=== PATIENT | male | born 1960 | race Caucasian/White ===

== ENCOUNTER 2019-03-26 20:06 | Emergency (ER) | payer MEDICARE, OTHER ==
[2019-03-26] MEDS ORDERED: MORPHINE SULFATE 10 MG/ML IV ONE (20:28)
[2019-03-26] MEDS ORDERED: Zofran 4 MG/2 ML VIAL IV ONE (20:28)
[2019-03-26] MEDS ORDERED: Sodium Chloride 0.9% 1000 ML 1,000 ML IV SCH (20:30)
[2019-03-26] MEDS ORDERED: MORPHINE SULFATE 10 MG/ML ONE (20:34)
[2019-03-26] MEDS ORDERED: Sodium Chloride 0.9% 1000 ML 1,000 ML ONE (20:34)
[2019-03-26] MEDS ORDERED: Zofran 4 MG/2 ML VIAL ONE (20:34)
--- NOTE | 2019-03-26 20:52 | ERPHSYRPT ---
- History of Present Illness Time Seen by Provider: 03/26/19 20:23 Historian: patient Exam Limitations: other Patient Subjective Stated Complaint: Abdominal pain Triage Nursing Assessment: Patient brought into ED per EMS at this time. Patient transferred to be with assist of 2. Patient A+O X 3. Patient's skin pink , warm and dry. Patient complains of sharp, stabbing pain in abdomen left side of umbilicus 07/11at started a little before 1999. Patient states his back is also hurting 07/11. Patient's abdomen soft and round with positive bowel sounds X 4. Patient also complains of N/V. Physician History: PATIENT WITH A HISTORY OF HYPERTENSION, CVA WITH LEFT HEMIPARESIS, CORONARY ARTERY DISEASE, COMPLAINS OF ACUTE ONSET OF LEFT SIDED ABDOMINAL AND PERIUMBILICAL PAIN 30 MINUTES PRIOR TO ARRIVAL, DESCRIBES PAIN SHARP IN CHARACTER, RADIATES TO BACK AND ASSOCIATED WITH NAUSEA. DENIES URINARY SYMPTOMS , FEVER, EMESIS OR DIARRHEA. Timing/Duration: today Activities at Onset: none Quality: sharpness, stabbing Abdominal Pain Onset Location: LLQ, periumbilical Pain Radiation: other (BACK) Severity of Pain-Max: moderate Severity of Pain-Current: moderate Modifying Factors: Improves With: nothing Associated Symptoms: nausea Previous symptoms: no prior history Allergies/Adverse Reactions: aspirin Allergy (Verified 03/26/19 20:10) Penicillins Allergy (Verified 03/26/19 20:10) Hx Influenza Vaccination/Date Given: No Immunizations Up to Date: Yes - Review of Systems Constitutional: No Fever, No Chills Eyes: No Symptoms Ears, Nose, & Throat: No Symptoms Respiratory: No Symptoms, No Cough, No Dyspnea Cardiac: No Symptoms, No Chest Pain, No Edema, No Syncope Abdominal/Gastrointestinal: Abdominal Pain, Nausea, No Vomiting, No Diarrhea Genitourinary Symptoms: No Symptoms, No Dysuria Musculoskeletal: No Symptoms, No Back Pain, No Neck Pain Skin: No Rash Neurological: No Dizziness, No Focal Weakness, No Sensory Changes Psychological: No Symptoms Endocrine: No Symptoms All Other Systems: Reviewed and Negative - Past Medical History Neurological History: Stroke ENT History: No Pertinent History Cardiac History: Other Respiratory History: No Pertinent History Endocrine Medical History: No Pertinent History Musculoskeletal History: No Pertinent History GI Medical History: No Pertinent History History: No Pertinent History Psycho-Social History: No Pertinent History Male Reproductive Disorders: No Pertinent History - Past Surgical History Past Surgical History: No Neuro Surgical History: No Pertinent History Cardiac: No Pertinent History Respiratory: No Pertinent History Gastrointestinal: No Pertinent History Genitourinary: No Pertinent History Musculoskeletal: Orthopedic Surgery Male Surgical History: No Pertinent History Other Surgical History: collar bone surgery. Stents to be placed next Saturday. - Social History Smoking Status: Never smoker Exposure to second hand smoke: No Drug Use: none Patient Lives Alone: Yes - Nursing Vital Signs Nursing Vital Signs: Initial Vital Signs Temperature 98.2 F 03/26/19 20:11 Pulse Rate 99 H 03/26/19 20:11 Respiratory Rate 18 03/26/19 20:11 Blood Pressure 130/88 03/26/19 20:11 O2 Sat by Pulse Oximetry 96 03/26/19 20:11 Pain Scale Pain Intensity 0 - Physical Exam General Appearance: no apparent distress, alert Eye Exam: PERRL/EOMI, eyes nml inspection Ears, Nose, Throat Exam: normal ENT inspection, pharynx normal, moist mucous membranes Neck Exam: normal inspection, non-tender, supple, full range of motion Respiratory Exam: normal breath sounds, lungs clear, No respiratory distress Cardiovascular Exam: regular rate/rhythm, normal heart sounds Gastrointestinal/Abdomen Exam: soft, normal bowel sounds, tenderness (LEFT LOWER QUAD AND SUPRAPUBIC TENDERNESS), No mass Back Exam: normal inspection, normal range of motion, No CVA tenderness, No vertebral tenderness Extremity Exam: normal inspection, normal range of motion, pelvis stable Neurologic Exam: alert, oriented x 3, cooperative, normal mood/affect, nml cerebellar function, sensation nml, No motor deficits Skin Exam: normal color, warm, dry SpO2: 96 - CT Exams Abdomen/Pelvis CT Interpretation: Discussed w/radiologist (NORMAL APPENDIX, MINIMAL GALLBLADDER SLUDGE/GRAVEL, LEFT RENAL CORTICAL SCARRING ) Ordered Tests: Active Orders 24 hr Category Date Time Status Clean Catch Urine Specimen STAT Care 03/26/19 20:28 Active IV Insertion STAT Care 03/26/19 20:28 Active ABDOMEN AND PELVIS W/0 CONTRAS [CT] Stat Exams 03/26/19 20:29 Taken AMYLASE Stat Lab 03/26/19 20:35 Completed BLOOD CULTURE Stat Lab 03/26/19 20:50 Received CBC W DIFF Stat Lab 03/26/19 20:35 Completed CMP Stat Lab 03/26/19 20:35 Completed LIPASE Stat Lab 03/26/19 20:35 Completed UA W/RFX UR CULTURE Stat Lab 03/26/19 20:29 Uncollected Medication Summary Generic Name Dose Route Start Last Admin Trade Name Tera PRN Reason Stop Dose Admin Sodium Chloride 1,000 mls @ 100 mls/hr 03/26/19 20:30 03/26/19 20:45 Sodium Chloride 0.9% 1000 Ml IV 04/25/19 20:29 100 mls/hr .Q10H SONIA Administration Discontinued Medications Generic Name Dose Route Start Last Admin Trade Name Tera PRN Reason Stop Dose Admin Morphine Sulfate 6 mg 03/26/19 20:28 03/26/19 20:39 Morphine Sulfate 10 Mg/Ml IV 03/26/19 20:29 6 mg STAT ONE Administration Morphine Sulfate Confirm 03/26/19 20:34 Morphine Sulfate 10 Mg/Ml Administered 03/26/19 20:35 Dose 10 mg .ROUTE .STK-MED ONE Ondansetron HCl 4 mg 03/26/19 20:28 03/26/19 20:39 Zofran 4 Mg/2 Ml Vial IV 03/26/19 20:29 4 mg STAT ONE Administration Ondansetron HCl Confirm 03/26/19 20:34 Zofran 4 Mg/2 Ml Vial Administered 03/26/19 20:35 Dose 4 mg .ROUTE .STK-MED ONE Lab/Rad Data: Laboratory Result Diagrams 03/26/19 20:35 03/26/19 20:35 Laboratory Results 03/26/19 03/26/19 Range/Units 20:35 20:35 WBC 9.1 (4.0-10.5) K/mm3 RBC 5.12 (4.1-5.6) M/mm3 Hgb 15.8 (12.5-18.0) gm/dl Hct 47.3 (42-50) % MCV 92.4 (78-100) fl MCH 30.9 (26-32) pg MCHC 33.4 (32-36) g/dl RDW 13.3 (11.5-14.0) % Plt Count 210 (150-450) K/mm3 MPV 10.6 H (6-9.5) fl Gran % 73.2 H (36.0-66.0) % Eos # (Auto) 0.13 (0-0.5) Absolute Lymphs (auto) 1.48 (1.0-4.6) Absolute Monos (auto) 0.82 (0.0-1.3) Lymphocytes % 16.2 L (24.0-44.0) % Monocytes % 9.0 (0.0-12.0) % Eosinophils % 1.4 (0.00-5.0) % Basophils % 0.2 (0.0-0.4) % Absolute Granulocytes 6.69 (1.4-6.9) Basophils # 0.02 (0-0.4) Sodium 142 (137-145) mmol/L Potassium 3.8 (3.5-5.1) mmol/L Chloride 108 H (98-107) mmol/L Carbon Dioxide 20 L (22-30) mmol/L Anion Gap 17.6 H (5-15) MEQ/L BUN 13 (9-20) mg/dL Creatinine 0.75 (0.66-1.25) mg/dL Estimated GFR > 60.0 ML/MIN Glucose 84 (74-106) mg/dL Calcium 9.3 (8.4-10.2) mg/dL Total Bilirubin 0.40 (0.2-1.3) mg/dL AST 22 (17-59) U/L ALT 18 (0-50) U/L Alkaline Phosphatase 75 (38-126) U/L Serum Total Protein 7.2 (6.3-8.2) g/dL Albumin 3.8 (3.5-5.0) g/dL Amylase 86 (30-110) U/L Lipase 276 (23-300) U/L - Progress Progress Note: 03/26/19 20:53 IV NORMAL SALINE 50ML/HR, ZOFRAN 4MG, MORPHINE 6MG IV 03/26/19 22:14, PAIN COMPLETELY RESOLVED Counseled pt/family regarding: lab results, need for follow-up, rad results - Departure Departure Disposition: Home Clinical Impression: ACUTE BILIARY COLIC Condition: Stable Critical Care Time: No Additional Instructions: AVOID GREASY OR SPICY FOODS. FOLLOWUP WITH YOUR PRIMARY CARE PROVIDER FOR REVIEW OF ABDOMINAL CT DISK. ZOFRAN 4MG EVERY 6 HOURS FOR NAUSEA. NORCO 5/325 EVERY 6 HOURS FOR PAIN DISCOMFORT. RETURN TO EMERGENCY FOR INCREASING PAIN DISCOMFORT. Prescriptions: Hydrocodone/APAP 5-325 Tab^^^ [Warren 5-325 Tablet^^^] 1 tab PO Q6HPRN PRN #10 tablet MDD 6 PRN Reason: Pain Ondansetron ODT 4 MG [Zofran Odt 4 mg] 4 mg PO Q6H PRN PRN #10 tab.rapdis PRN Reason: Nausea
[2019-03-26 20:57] LABS: BASOPHIL % 0.2 % (0.0-0.4); Basophil (Absolute #) 0.02 (0-0.4); Eosinophil % 1.4 % (0.00-5.0); Eosinophil (Absolute #) 0.13 (0-0.5); Granulocyte Absolute (ANC) 6.69 (1.4-6.9); Granulocytes % 73.2 % (36.0-66.0); Hematocrit 47.3 % (42-50); Hemoglobin 15.8 gm/dl (12.5-18.0); Lymphocyte (Absolute #) 1.48 (1.0-4.6); Lymphocytes % 16.2 % (24.0-44.0); Mean Cell Volume 92.4 fl (78-100); Mean Corpuscular Hemoglobin 30.9 pg (26-32); Mean Corpuscular Hgb Concent. 33.4 g/dl (32-36); Mean Platelet Volume 10.6 fl (6-9.5); Monocyte (Absolute #) 0.82 (0.0-1.3); Platelet Count 210 K/mm3 (150-450); Red Blood Count 5.12 M/mm3 (4.1-5.6); Red Cell Distribution Width 13.3 % (11.5-14.0); White Blood Count 9.1 K/mm3 (4.0-10.5)
[2019-03-26 21:12] LABS: ALBUMIN 3.8 g/dL (3.5-5.0); ALKALINE PHOSPHATASE 75 U/L (38-126); AMYLASE 86 U/L (30-110); ANION GAP 17.6 MEQ/L (5-15); BLOOD UREA NITROGEN 13 mg/dL (9-20); CHLORIDE 108 mmol/L (98-107); Calcium 9.3 mg/dL (8.4-10.2); Carbon Dioxide 20 mmol/L (22-30); Creatinine 1 0.75 mg/dL (0.66-1.25); Glucose 84 mg/dL (74-106); LIPASE 276 U/L (23-300); Potassium 3.8 mmol/L (3.5-5.1); SGOT/AST 22 U/L (17-59); SGPT/ALT 18 U/L (0-50); SODIUM 142 mmol/L (137-145); Total Protein 7.2 g/dL (6.3-8.2)
[2019-03-26 22:07] VITALS: BP 118/83; PULSE 87; O2SAT 96
[2019-03-26] MEDS ORDERED: NORCO 5/325 MG PO ONE (22:19)
[2019-03-26] MEDS ORDERED: ZOFRAN ODT 4 MG PO ONE (22:20)
[2019-03-26] MEDS ORDERED: ZOFRAN ODT 4 MG ONE (22:22)
[2019-03-26] MEDS ORDERED: NORCO 5/325 MG ONE (22:23)
--- NOTE | 2019-03-27 08:49 | XRAY ---
Indication: Left lower quadrant abdomen pain. Nausea, vomiting, and constipation. Multiple contiguous axial images obtained through the abdomen and pelvis without contrast as ordered. Comparison: None Lung bases demonstrates moderate bibasilar dependent atelectasis. Heart is not enlarged. Noncontrasted stomach and bowel loops appear nonobstructed and normal air-filled appendix. No free fluid/air. Gallbladder demonstrates tiny gravel/sludge in the dependent portion. Left mid renal cortical scarring. Remaining liver, gallbladder, pancreas, spleen, adrenal glands, kidneys, ureters, and bladder appear unremarkable for noncontrast exam. Mild aortoiliac calcifications without AAA. Osseous structures intact with minimal degenerative changes throughout the spine. No ventral or inguinal hernias. Impression: 1. Tiny gallbladder gravel/sludge and left renal scarring. 2. Moderate bibasilar dependent atelectasis. Superimposed pneumonia not completely excluded. 3. Remaining CT abdomen/pelvis without contrast exam is negative. CT DI 23.63
== END 2019-03-26 22:42 | disposition home or self-care (01) ==
LOC: ED 20:06
DX: K80.50 Calculus of bile duct without cholangitis or cholecystitis without obstruction (principal); I10 Essential (primary) hypertension; I69.354 Hemiplegia and hemiparesis following cerebral infarction affecting left non-dominant side; I25.10 Atherosclerotic heart disease of native coronary artery without angina pectoris
CPT/HCPCS: 36415; 74176; 80053; 82150; 83690; 85025; 87040; 96360; 96374; 96375; 99284; J2270; J2405; Q0162; A9270-GY